=== PATIENT | female | born 1990 | race Caucasian/White ===

== ENCOUNTER 2017-03-17 16:00 | Emergency (ER) | payer BC ==
[~2017-03-17] VITALS: Ht 162.6 cm; Wt 87.5 kg
[~2017-03-17 16:00] MED LIST: BCPILLS PO; PANT40TA PO
[2017-03-17 16:11] VITALS: TEMP 36.9; Ht 162.6 cm; Wt 87.5 kg
--- NOTE | 2017-03-17 16:57 | DIAGNOSTIC IMAGING REPORT ---
L FOOT MIN 3 VIEWS ROUTINE CLINICAL HISTORY: Left foot pain btn 4th and 5th distal metatarsals. COMPARISON: None FINDINGS: Alignment of the left foot is anatomic. No acute fracture is identified. Tarsometatarsal joints are intact. No erosions are identified. There is no evidence for stress fracture by radiography. IMPRESSION: Unremarkable left foot radiographs. Electronically signed by: Dmitry Olmos M.D. 03/17/2017 4:56 PM Dictated Date/Time: 03/17/2017 4:55 PM
--- NOTE | 2017-03-17 17:57 | EMERGENCY ROOM VISIT NOTE ---
History First contact with patient: 16:14 Chief Complaint: FOOT PAIN Stated Complaint: LEFT FOOT PAIN RADIATING INTO BACK History of Present Illness The patient is a 26 year old female who presents to the Emergency Room with complaints of left foot pain. The patient reports that she has had left foot pain for the past 5 days. The patient reports that the pain started in her foot , but has now radiated up and she has pain in the back of her leg and her back. She does have a history of back problems and states that she had an L2 pressure fracture 6 years ago. She has had sciatic nerve pain in the past but states this feels different. She reports that the first and second toes of her left foot are numb. She denies any injury to the foot. She reports her symptoms have been worse this morning. She does have an appointment scheduled with orthopedics 2 weeks from now. Icing the foot without relief. Review of Systems A 6 point review of systems was reviewed with the patient with pertinent positives and negatives as per history of present illness. All else were negative. Social History Smoking Status: Current Every Day Smoker Current/Historical Medications Scheduled Control Pills ( Control Pills), 1 TAB PO DAILY Pantoprazole (Protonix), 40 MG PO QAM Physical Exam Vital Signs Date Time Temp Pulse Resp B/P (MAP) Pulse Ox O2 Delivery O2 Flow Rate FiO2 03/17/17 18:08 85 18 136/77 96 03/17/17 16:11 36.9 89 16 137/90 97 Room Air Physical Exam VITALS: Vitals are noted on the nurse's note and reviewed by myself. Vital signs stable. GENERAL: This is a 26-year-old female, in no acute distress, nondiaphoretic, well-developed well-nourished. SKIN: No erythema, edema or warmth. MUSCULOSKELETAL: There is focal tenderness to the dorsal aspect of the left foot , between the first and second metatarsals. Patient reports decreased sensation over her first and second toes. Full range of motion of the foot. Patient reports pain with plantar flexion. Dorsiflexion is full and normal. Capillary refill within 2 seconds. NEURO: Patient was alert and oriented to person place and time. Medical Decision & Procedures Medical Decision Differential diagnosis includes foot fracture, arthritis, neuroma, among others. The patient was evaluated as above. She initially believed that her pain was radiating from the back into the foot, however on examination she has focal tenderness in the foot and I feel that this pain likely is due to an issue in the foot. This may represent a neuroma or other process. X-ray was negative. Patient does admit that the pain is worsened when she is wearing her sneakers. I recommend that she buy better fitting shoes, which may help with her pain. Conservative measures were discussed, however she will likely need to see orthopedics. She does have an appointment set up. She verbalized understanding of my assessment and treatment plan and was discharged home in good condition. Medication Reconcilliation Current Medication List: was personally reviewed by me Blood Pressure Screening Patient's blood pressure: Normal blood pressure Impression Primary Impression: Left foot pain Departure Information Dispostion Home / Self-Care Condition GOOD Referrals Nerissa Vidal, C.R.N.P. (PCP) Patient Instructions My [facility] Additional Instructions Follow-up with orthopedics as scheduled. You may want to wear a more loose fitting shoe, as this can help relieve symptoms. Naproxen/aleve twice daily. Elevate the foot and ice as needed for pain and swelling. Return to the emergency department with any worsening or new/concerning symptoms.
[2017-03-17 18:08] VITALS: BP 136/77; PULSE 85; O2SAT 96
== END 2017-03-17 18:08 | disposition home or self-care (01) ==
LOC: C.EDB 16:01 → C.EDD 18:08
DX: M79.672 Pain in left foot (principal); F17.210 Nicotine dependence, cigarettes, uncomplicated; Z79.3 Long term (current) use of hormonal contraceptives; Z79.899 Other long term (current) drug therapy

== ENCOUNTER → 2017-10-07 | Outpatient (CLI) | payer OTHER ==
[2017-10-07 18:44] LABS: BASO % 0.3 %; BASO ABS # 0.02 K/uL (0-0.2); EOS % 0.9 %; EOS ABS # 0.06 K/uL (0-0.5); HEMATOCRIT 41.9 % (37-47); HEMOGLOBIN 14.7 g/dL (12.0-16.0); IG# 0.01 K/uL (0.00-0.02); LYMPH % 37.6 %; LYMPH ABS # 2.64 K/uL (1.2-3.4); MEAN CELL VOLUME 88.4 fL (80-100); MEAN CORPUSCULAR HGB CONC 35.1 g/dl (32-36); MEAN PLATELET VOLUME 10.7 fL (7.4-10.4); MONO ABS # 0.49 K/uL (0.11-0.59); NEUT % 54.1 %; NEUT ABS # 3.81 K/uL (1.4-6.5); PLATELET COUNT 226 K/uL (130-400); RED CELL DISTRIBUTION WIDTH CV 12.6 % (11.5-14.5); RED CELL DISTRIBUTION WIDTH SD 40.4 fL (36.4-46.3); WHITE BLOOD COUNT 7.03 K/uL (4.8-10.8)
[2017-10-07 19:21] LABS: ALBUMIN 4.5 gm/dl (3.4-5.0); ALKALINE PHOSPHATASE 70 U/L (45-117); ALT/SGPT 23 U/L (12-78); AST/SGOT 16 U/L (15-37); BLOOD UREA NITROGEN 7 mg/dl (7-18); CALCIUM 9.1 mg/dl (8.5-10.1); CARBON DIOXIDE 26 mmol/L (21-32); GLUCOSE 81 mg/dl (70-99); POTASSIUM 3.5 mmol/L (3.5-5.1); SODIUM 136 mmol/L (136-145); TOTAL PROTEIN 8.4 gm/dl (6.4-8.2)
[2017-10-08 06:26] LABS: HEMOGLOBIN A1C 5.4 % (4.5-5.6)
== END | disposition home or self-care (01) ==
LOC: C.LAB 17:40
PROVIDERS: ATTEND Nurse Practitioner Family
DX: M79.2 Neuralgia and neuritis, unspecified (principal)

== ENCOUNTER → 2017-10-28 | Outpatient (CLI) | payer OTHER | END | disposition home or self-care (01) | LOC: C.LAB 08:27 | PROVIDERS: ATTEND Nurse Practitioner Family | DX: Z13.220 Encounter for screening for lipoid disorders (principal); Z13.1 Encounter for screening for diabetes mellitus ==

== ENCOUNTER 2021-12-05 09:19 | Inpatient (IN) ==
[2021-12-05] MEDS ORDERED: OXYTOCIN 30 UNITS/500 ML BAG IV PRN ×3 (09:39→23:32)
[2021-12-05] MEDS ORDERED: LIDOCAINE 1% LOCAL 20 ML VIAL INFIL PRN (09:39)
[2021-12-05 10:06] LABS: Hematocrit (blood only) 27.4 % (34.1-44.9); Hemoglobin 9.7 g/dl (12.0-16.0); Mean Corpuscular Hemoglobin 33.4 pg (25.0-34.0); Mean Corpuscular Hgb Conc 35.4 g/dL (32.0-36.0); Mean Corpuscular Volume 94.5 fL (80.0-100.0); Mean Platelet Volume 10.7 fL (9.4-12.3); Platelet Count 166 K/uL (130-400); RDW Coefficient of Variation 13.1 % (11.5-14.5); White Blood Count 7.46 K/ul (4.8-10.8)
[2021-12-05] MEDS: LACTATED RINGER'S 1,000 ML IV PRN ×2 (10:27→21:19)
[2021-12-05 11:04] LABS: Albumin Globulin Ratio 1.3 (0.9-2); Albumin Level 3.5 gm/dl (3.4-5.0); BUN Creatinine Ratio 8.5 (10-20); Bilirubin,Total 0.4 mg/dl (0.2-1.0); Creatinine Clr Calc Pharmacy 148.9 ml/min; Est GFR (African American) 142.5 ml/min; Globulin 2.6 gm/dl (2.5-4.0); Potassium 3.5 mmol/L (3.5-5.1); Total Protein 6.1 gm/dl (6.0-8.3)
--- NOTE | 2021-12-05 12:31 | Anesthesiology Consultation ---
Date of Service December 05, 2021 Assessment & Plan Chart Review Chart Review: Acceptable Risk for Surgery, Patient NOT seen in Pre Admission Testing and Acceptable Risk for Labor Epidural Consults Requested none ASA ASA3 Proposed Anesthesia Anesthesia Type: Labor Epidural and CSE History Height/Weight Height: 5 ft 4 in Weight: 87.09 kg Allergies Allergy/AdvReac Type Severity Reaction Status Date / Time No Known Drug Allergies Allergy Unknown Unknown Verified 12/05/21 11:24 Medications Home Medications Medication Instructions Recorded Confirmed Last Taken pantoprazole 20 mg tablet,delayed 20 mg PO DAILY 04/28/21 12/05/21 12/04/21 08:00 release prenat.vits,anni,[id number] 1 tab PO DAILY 05/06/21 12/05/21 12/04/21 08:00 acetone (urine) test (Ketone Urine #50 ea 10/28/21 12/05/21 Unknown Test strips) blood sugar diagnostic (OneTouch #150 ea 10/28/21 12/05/21 Unknown Verio test strips) lancets 33 gauge (OneTouch Delica #150 ea 10/28/21 12/05/21 Unknown Plus Lancet) Active Medications Generic Name Dose Route Start Last Admin Trade Name Freq PRN Reason Stop Dose Admin Lactated Ringer's 1,000 mls @ 125 mls/hr 12/05/21 09:39 12/05/21 10:27 Lr IV 12/07/21 09:38 125 mls/hr .Q8H PRN Administration L&D Protocol Protocol Past Medical History Medical History Cellulitis History of chicken pox Exercise / Class Metabolic Activity II 4-5 Yardwork/Stairs/Walk up hill Past Family History Family History Father Hypertension Grandfather (Paternal) Stroke Prostate cancer Grandmother (Maternal) Stroke Heart disease Bleeding disorder unknown type Grandmother (Paternal) Heart disease Other No family history of adverse response to anesthesia Denies family history of Ovarian cancer Breast cancer Colorectal cancer Past Surgical History Surgical History History of surgery on arm left History of wisdom tooth extraction Past Anesthesia History No Hx of Anesthesia Complications and No Family Hx of Anesthesia Complications History of PONV No Hx of PONV and No Hx of Motion Sickness Social History Smoking Status: Light tobacco smoker tobacco type: cigarettes Smoking cigarettes per day: 5(weaned down from 03/08 ppd Do You Dip or Chew Tobacco: No Hx Alcohol Use: No Hx Substance Use: No Physical Exam Vital Signs Last Vital Signs Temp 37.2 C 12/05/21 11:30 Pulse 84 12/05/21 12:22 Resp 18 12/05/21 09:43 BP 134/76 12/05/21 12:22 Testing Laboratory Results 12/05/21 09:50 12/05/21 10:28
[2021-12-05] MEDS ORDERED: fentaNYL citrate 100 MCG/2 ML VIAL ONE (15:41)
[2021-12-05] MEDS ORDERED: ePHEDrine sulfate 50 MG/ML AMP ONE (15:41)
[2021-12-05] MEDS ORDERED: LIDOCAINE 2%/EPINEPHRINE 1:200,000 20 ML SDV ONE (15:41)
[2021-12-05] MEDS ORDERED: BUPIVACAINE 0.25% 30 ML VIAL ONE (15:41)
[2021-12-05] MEDS ORDERED: SODIUM CHLORIDE 0.9% INJ 10 ML VIAL ONE (15:41)
[2021-12-05] MEDS ORDERED: fentaNYL 2MCG/ML ROPIVACAINE 1.25MG/ML 100 ML BAG EPI ONE (15:42)
[2021-12-05] MEDS ORDERED: fentaNYL 2MCG/ML ROPIVACAINE 1.25MG/ML 100 ML BAG EPI PRN (16:25)
[2021-12-05] MEDS ORDERED: NALBUPHINE HCL INJ 10 MG/ML AMP IV PRN (16:25)
[2021-12-05] MEDS ORDERED: NALOXONE HCL 0.4 MG/1 ML VIAL/CARP IV PRN (16:25)
[2021-12-05] MEDS ORDERED: PROMETHAZINE HCL 25 MG in SODIUM CHLORIDE 0.9% 50 ML IV PRN (16:25)
[2021-12-05] MEDS ORDERED: NALOXONE HCL 1 MG in SODIUM CHLORIDE 0.9% 1000ML 1,000 ML IV PRN (16:25)
[2021-12-05] MEDS ORDERED: ONDANSETRON INJ 2 MG/ML 2 ML VIAL IV PRN (16:25)
[2021-12-05] MEDS ORDERED: diphenhydrAMINE 50 MG/ML VIAL IV PRN (16:25)
[2021-12-05] MEDS ORDERED: ePHEDrine sulfate 50 MG/ML AMP IV PRN (16:25)
--- NOTE | 2021-12-05 19:47 | History & Physical Report ---
Date of Service December 05, 2021 Assessment & Plan (1) Supervision of normal first : Plan: Zehra is a 31-year-old at 37 weeks 0 days gestational age presents with pre mature rupture of membranes. 1. Fetus: Cat 1 2. Labor: Pitocin started. SROM 3. GBS negative (2) Diet controlled gestational diabetes mellitus: (3) PROM (premature rupture of membranes): Admission and Anticipated Discharge Date Admission Date: December 05, 2021 History of Present Illness Primary Care Provider: CAROLINA Dowling Jacquie is a 31-year-old currently at 37 weeks 0 days gestational age presents with spontaneous rupture of membranes. Patient denying any notable contractions. Patient also denies any vaginal bleeding reporting good movement. Patient's complicated by anemia requiring iron transfusion and diet-controlled gestational diabetes. Allergies Allergy/AdvReac Type Severity Reaction Status Date / Time No Known Drug Allergies Allergy Unknown Unknown Verified 12/05/21 11:24 Home Medications Medication Instructions Recorded Confirmed Type pantoprazole 20 mg tablet,delayed 20 mg PO DAILY 04/28/21 12/05/21 History release prenat.vits,anni,[id number]-jngj-hwiij 1 tab PO DAILY 05/06/21 12/05/21 History acetone (urine) test (Ketone Urine #50 ea 10/28/21 12/05/21 Rx Test strips) blood sugar diagnostic (OneTouch #150 ea 10/28/21 12/05/21 Rx Verio test strips) lancets 33 gauge (OneTouch Delica #150 ea 10/28/21 12/05/21 Rx Plus Lancet) Patient History Medical History Cellulitis History of chicken pox Surgical History History of surgery on arm left History of wisdom tooth extraction Family History Father Hypertension Grandfather (Paternal) Stroke Prostate cancer Grandmother (Maternal) Stroke Heart disease Bleeding disorder unknown type Grandmother (Paternal) Heart disease Other No family history of adverse response to anesthesia Denies family history of Ovarian cancer Breast cancer Colorectal cancer Social History Smoking Status: Light tobacco smoker Age Started Using Tobacco: 21; Cigarettes Per Day: 5(weaned down from 1/2 ppd; Second Hand Exposure: Yes; Do You Dip or Chew Tobacco: No; Tobacco Cessation Education Requested by Patient: No Hx Alcohol Use: No Hx Substance Use: No Preferred Language: Vietnamese Communication Ability: Effective Media Law Faculty Member Required: No Beliefs That Will Affect Care: None marital status: marital status details: Jose Grant (31) [phone] Current Living Situation: Significant Other Current Living Situation Comment: Jose- current occupational status: employed 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 Other Information That Helps Us Care for You: No Feels Safe at Home: Yes Safety Concerns: Feels Safe At This Time Assistive Devices: None Physical Exam Genitourinary: Manual OB Exam: + cervical dilation 3 cm, + cervical effacement 50%, + station -2 and + amniotic fluid ( Grossly ruptured) clear OB Exam Monitor Tracing: + external FHT monitor used, + external uterine monitor used, + category I and + normal FHT variability; no early decelerations present, no late decelerations present and no variable decelerations exam per RN Results & Data ([facility]) Vital Signs (Past 12 Hours) Vital Signs Temp Pulse Resp BP 12/05/21 13:52 82 136/74 12/05/21 13:37 88 137/73 12/05/21 13:30 18 12/05/21 13:30 36.9 C 18 12/05/21 13:22 82 142/79 H 12/05/21 13:07 75 132/75 12/05/21 12:37 84 144/75 H 12/05/21 12:22 84 134/76 12/05/21 12:07 90 132/73 12/05/21 11:52 90 125/68 12/05/21 11:37 85 141/73 H 12/05/21 11:30 37.2 C 12/05/21 11:22 89 127/76 12/05/21 11:07 89 138/90 12/05/21 10:52 87 135/90 12/05/21 10:09 96 H 165/100 H 12/05/21 09:27 100 H 140/97 12/05/21 09:43 36.8 C 18 Code Status & VTE Plan VTE Prophylaxis Plan VTE Prophylaxis will be ordered: No Coding Level of Care Code None Diagnoses Supervision of normal first Z34.00 Diet controlled gestational diabetes mellitus O24.410 PROM (premature rupture of membranes) O42.90
--- NOTE | 2021-12-05 19:48 | Labor Progress Brief Note ---
Date of Service December 05, 2021 Subjective Reason For Note: Routine Evaluation Assessment & Plan (1) Supervision of normal first : Plan: Zehra is a 31-year-old at 37 weeks 0 days gestational age presents with pre mature rupture of membranes. 1. Fetus: Cat 1 2. Labor: Progressing, continue started. SROM 3. GBS negative (2) Diet controlled gestational diabetes mellitus: (3) PROM (premature rupture of membranes): Admission and Anticipated Discharge Date Admission Date: December 05, 2021 Physical Exam Genitourinary: Manual OB Exam: + cervical dilation 6 cm, + cervical effacement 70%, + station 0 and + amniotic fluid clear OB Exam Monitor Tracing: + external FHT monitor used, + external uterine monitor used, + category I and + normal FHT variability; no early decelerations present, no late decelerations present and no variable decelerations Results & Data ([facility]) Vital Signs (Past 12 Hours) Vital Signs Temp Pulse Resp BP Pulse Ox 12/05/21 19:43 86 94 12/05/21 19:39 88 123/62 12/05/21 19:38 92 H 95 12/05/21 19:33 103 H 94 12/05/21 19:28 89 94 12/05/21 19:23 94 12/05/21 19:23 105 H 12/05/21 19:23 97 H 111/75 12/05/21 19:18 89 96 12/05/21 19:13 95 H 96 12/05/21 19:09 83 130/71 12/05/21 19:08 91 H 96 12/05/21 19:00 18 12/05/21 19:00 36.9 C 18 12/05/21 19:03 86 95 12/05/21 19:00 18 12/05/21 19:00 18 12/05/21 18:58 98 H 98 12/05/21 18:54 90 149/67 H 12/05/21 18:53 84 96 12/05/21 18:48 95 H 97 12/05/21 18:43 86 97 12/05/21 18:30 18 12/05/21 18:30 18 12/05/21 18:38 97 H 96 12/05/21 18:39 103 H 138/79 12/05/21 18:33 96 H 97 12/05/21 18:28 107 H 96 12/05/21 18:00 18 12/05/21 18:00 18 12/05/21 18:25 87 131/65 12/05/21 18:23 94 H 96 12/05/21 18:18 93 H 97 12/05/21 18:13 103 H 96 12/05/21 18:09 90 125/71 12/05/21 18:08 81 94 12/05/21 18:03 93 H 96 12/05/21 17:58 77 95 12/05/21 17:54 81 123/58 L 12/05/21 17:53 80 95 12/05/21 17:48 78 95 12/05/21 17:43 80 97 12/05/21 17:38 82 96 12/05/21 17:33 76 96 12/05/21 17:30 18 12/05/21 17:30 36.9 C 18 12/05/21 17:28 77 97 12/05/21 17:23 89 120/64 97 12/05/21 17:22 82 123/55 L 12/05/21 17:18 111 H 96 12/05/21 17:16 88 98/50 L 12/05/21 17:13 90 96 12/05/21 17:10 106 H 105/55 L 12/05/21 17:08 108 H 94 12/05/21 17:00 18 12/05/21 17:00 18 12/05/21 17:05 94 H 114/62 12/05/21 16:24 18 12/05/21 16:24 18 12/05/21 16:28 18 12/05/21 16:28 18 12/05/21 17:03 105 H 93 12/05/21 17:04 102 H 105/64 12/05/21 17:01 97 H 106/52 L 12/05/21 16:58 87 96 12/05/21 16:56 98 H 185/79 H 12/05/21 16:53 104 H 96 12/05/21 16:51 90 130/61 12/05/21 16:49 44 L 121/77 12/05/21 16:48 88 20 98 12/05/21 16:47 93 H 116/65 12/05/21 16:45 98 H 116/70 93 12/05/21 16:43 85 18 108/58 L 96 12/05/21 16:42 85 108/59 L 12/05/21 16:39 78 106/58 L 12/05/21 16:38 81 93 12/05/21 16:37 66 18 101/53 L 94 12/05/21 16:35 107 H 112/56 L 12/05/21 16:33 96 12/05/21 16:33 87 12/05/21 16:33 83 117/56 L 12/05/21 16:31 90 118/62 12/05/21 16:29 94 H 122/62 12/05/21 16:28 96 12/05/21 16:28 84 12/05/21 16:28 96 H 114/58 L 12/05/21 16:26 111 H 93 12/05/21 16:25 102 H 147/71 H 12/05/21 16:23 101 H 97 12/05/21 16:21 96 H 18 130/60 12/05/21 16:19 90 140/63 94 12/05/21 16:18 82 97 12/05/21 16:17 98 H 139/69 12/05/21 16:16 90 148/72 H 12/05/21 16:13 98 H 159/103 H 12/05/21 16:11 97 H 157/96 H 12/05/21 16:08 108 H 155/105 H 12/05/21 15:53 86 144/84 H 12/05/21 15:30 37.1 C 12/05/21 15:38 86 138/74 12/05/21 15:23 95 H 134/83 12/05/21 15:07 76 138/64 12/05/21 14:52 77 138/67 12/05/21 14:37 75 146/72 H 12/05/21 14:24 86 134/82 12/05/21 14:08 83 144/69 H 12/05/21 14:07 87 146/94 H 12/05/21 13:52 82 136/74 12/05/21 13:37 88 137/73 12/05/21 13:30 18 12/05/21 13:30 36.9 C 18 12/05/21 13:22 82 142/79 H 12/05/21 13:07 75 132/75 12/05/21 12:37 84 144/75 H 12/05/21 12:22 84 134/76 12/05/21 12:07 90 132/73 12/05/21 11:52 90 125/68 12/05/21 11:37 85 141/73 H 12/05/21 11:30 37.2 C 12/05/21 11:22 89 127/76 12/05/21 11:07 89 138/90 12/05/21 10:52 87 135/90 12/05/21 10:09 96 H 165/100 H 12/05/21 09:27 100 H 140/97 12/05/21 09:43 36.8 C 18 Coding Level of Care Code None Diagnoses Supervision of normal first Z34.00 Diet controlled gestational diabetes mellitus O24.410 PROM (premature rupture of membranes) O42.90
[2021-12-05] MEDS ORDERED: IBUPROFEN 600 MG TAB PO PRN (23:32)
[2021-12-05] MEDS ORDERED: BENZOCAINE 20% AER SPR 82.5 GM CAN EXT PRN (23:32)
[2021-12-05] MEDS ORDERED: DIPHTHERIA/TETANUS/PERTUSSIS 0.5 ML SYR/VIAL IM ONE (23:32)
[2021-12-05] MEDS ORDERED: bisacodyL 10 MG SUPP PR PRN (23:32)
[2021-12-05] MEDS ORDERED: HYDROCORTISONE ACETATE 25 MG SUPP PR PRN (23:32)
[2021-12-05] MEDS ORDERED: ACETAMINOPHEN 325 MG TAB PO PRN (23:32)
--- NOTE | 2021-12-06 01:29 | Anesthesia Procedure Note ---
Date of Service December 06, 2021 Anesthesia Post Epidural Note Vital Signs Vital Signs: Temp Pulse Resp BP Pulse Ox 36.9 C 90 18 147/71 H 93 12/05/21 23:03 12/06/21 01:16 12/06/21 01:01 12/06/21 01:16 12/05/21 23:28 Notes Mental Status: alert / awake / arousable and participated in evaluation Nausea / Vomiting: adequately controlled Pain: adequately controlled Airway Patency, RR, SpO2: stable & adequate BP & HR: stable & adequate Hydration State: stable & adequate Neuraxial Anesthesia: was administered and sensory block is resolving Anesthetic Complications: no major complications apparent and Pt Satisfied with anesthetic care Epidural: Removed without complications and With tip intact
[2021-12-06 06:41] LABS: Hematocrit (blood only) 23.4 % (34.1-44.9); Hemoglobin 8.3 g/dl (12.0-16.0); Mean Corpuscular Hemoglobin 33.9 pg (25.0-34.0); Mean Corpuscular Hgb Conc 35.5 g/dL (32.0-36.0); Mean Corpuscular Volume 95.5 fL (80.0-100.0); Mean Platelet Volume 10.7 fL (9.4-12.3); Platelet Count 160 K/uL (130-400); RDW Coefficient of Variation 12.7 % (11.5-14.5); RDW Standard Deviation 43.8 fL (36.4-46.3); Red Blood Count 2.45 M/uL (3.93-5.22); White Blood Count 11.87 K/ul (4.8-10.8)
--- NOTE | 2021-12-06 08:06 | Obstetrical Progress Note ---
Date of Service December 06, 2021 Assessment & Plan (1) Encounter for care and examination after delivery: Plan With 31-year-old day 1 status post normal spontaneous vaginal delivery. Doing well. Routine care. Anemia noted with appropriate decline from admission. Denies anemia symptoms. Subjective Ambulation: ambulating normally Voiding: no voiding problems Passing Gas:: Yes Diet Tolerance:: regular diet Lochia:: Moderate Feeding Type:: breast feeding Physical Exam Constitutional WD/WN, vitals as above Respiratory normal respiratory effort; no respiratory distress and no labored breathing Gastrointestinal (Abdomen) Inspection/Auscultation: abdomen normal to inspection; abdomen not distended Percussion/Palpation: abdomen soft; abdomen nontender, no guarding and abdomen not rigid Genitourinary OB Exam Abdomen: + fundal height Fundus: + firm and + relation to umbilicus (Below); not tender or not boggy Results & Data ([facility]) Vital Signs (Past 12 Hours) Vital Signs Temp Pulse Pulse Resp BP BP Pulse Ox 12/06/21 03:45 37 C 90 18 138/78 12/06/21 02:00 37.1 C 101 H 18 142/90 H 12/06/21 01:31 36.9 C 18 12/06/21 01:01 18 12/06/21 00:31 18 12/06/21 00:17 18 12/06/21 00:02 18 12/05/21 23:47 18 12/05/21 23:31 18 12/06/21 01:31 92 H 145/73 H 12/06/21 01:16 90 147/71 H 12/06/21 01:01 90 146/75 H 12/06/21 00:47 99 H 143/75 H 12/06/21 00:31 98 H 126/61 12/06/21 00:17 96 H 128/59 L 12/06/21 00:02 96 H 144/83 H 12/05/21 23:47 99 H 114/73 12/05/21 23:31 112 H 149/67 H 12/05/21 23:28 120 H 93 12/05/21 23:23 129 H 82 L 12/05/21 23:22 122 H 89 L 12/05/21 23:18 119 H 92 12/05/21 23:13 132 H 92 12/05/21 23:08 132 H 93 10/01/22 23:09 134 H 130/80 12/05/21 23:03 20 12/05/21 23:03 36.9 C 110 H 20 93 12/05/21 22:58 157 H 93 12/05/21 22:56 150 H 85 L 12/05/21 22:53 112 H 95 12/05/21 22:48 116 H 95 12/05/21 22:43 91 H 94 12/05/21 22:40 100 H 20 119/56 L 12/05/21 22:38 101 H 97 12/05/21 22:33 97 H 97 12/05/21 22:28 109 H 97 12/05/21 22:23 86 127/62 95 12/05/21 22:18 92 H 95 12/05/21 22:13 83 94 12/05/21 22:08 75 94 12/05/21 22:09 75 122/60 12/05/21 22:03 82 94 12/05/21 21:58 83 92 12/05/21 21:53 83 114/62 93 12/05/21 21:48 82 93 12/05/21 21:43 81 93 12/05/21 21:39 78 109/58 L 12/05/21 21:38 78 95 12/05/21 21:33 85 97 12/05/21 21:28 86 95 12/05/21 21:23 85 97 12/05/21 21:18 105 H 97 12/05/21 21:13 90 97 12/05/21 21:10 102 H 122/59 L 12/05/21 21:08 98 H 95 12/05/21 21:03 86 94 12/05/21 20:58 83 94 12/05/21 20:53 36.8 C 81 18 111/59 L 95 12/05/21 20:48 93 H 96 12/05/21 20:43 91 H 97 12/05/21 20:38 90 126/69 95 12/05/21 20:33 105 H 97 12/05/21 20:28 100 H 95 12/05/21 20:23 85 94 12/05/21 20:24 95 H 130/68 12/05/21 20:18 91 H 96 12/05/21 20:13 81 95 12/05/21 20:08 102 H 126/64 94
[2021-12-06] MEDS: PRENATAL VITAMIN 1 TAB PO SCH (08:19)
[2021-12-06] MEDS: DOCUSATE SODIUM 100 MG CAP PO SCH ×2 (08:19→20:37)
[2021-12-06] MEDS ORDERED: bisacodyL 5 MG TABEC PO SCH (20:00)
--- NOTE | 2021-12-07 02:58 | Delivery Summary ---
DATE OF SERVICE: 12/05/2021 PROCEDURE: Normal spontaneous vaginal delivery with left periurethral laceration repair. SURGEON: Salvador Kidd MD. PREOPERATIVE DIAGNOSES: 1. Single intrauterine at 37 weeks and 0 days' gestational age. 2. Premature rupture of membranes. 3. Diet-controlled gestational diabetes. 4. Anemia of . POSTOPERATIVE DIAGNOSES: Status post procedure. ESTIMATED BLOOD LOSS: 200 mL. DRAINS: Straight cath at the completion of the case. URINE OUTPUT: Per straight cath. COMPLICATIONS: None. FINDINGS: Viable male infant with weight pending and Apgars of 8 and 9 at one and five minutes respe ctively. DESCRIPTION OF PROCEDURE: The patient progressed to 10 cm dilated, 100% effaced, positive 2 station, pushed over intact perineum with epidural anesthesia and delivered a viable male with weight and Apgars as noted above. Head of the delivered in ROB position, restituted right transvers e. No nuchal cord noted. Body and shoulders quickly followed. was noted to be vigorous upo n delivery and 1 minute delayed cord clamping was initiated. Cord was then double clamped and cut. remained on maternal abdomen. Cord blood was obtained. Attention was then turned to delivery of the placenta, which was delivered intact, 3-vessel cord, gen tle cord traction. On inspection of the perineum, vagina, cervix, there was noted to be a left periu rethral laceration, which was repaired with 3-0 Vicryl in an interrupted stitch. Needle, sponge, and instrument counts were correct at the completion of the case with mother and stable in the i mmediate post-delivery period. Job ID: [id number]
[2021-12-07 06:26] LABS: Hematocrit (blood only) 24.4 % (34.1-44.9); Hemoglobin 8.6 g/dl (12.0-16.0)
--- NOTE | 2021-12-07 07:15 | Obstetrical Progress Note ---
Date of Service <Jennifer Humphries DO Janet - Last Filed: 12/07/21 07:15> December 07, 2021 Assessment & Plan <Jennifer TrevizoDO albert - Last Filed: 12/07/21 07:15> (1) Encounter for care and examination after delivery: Patient is PPD 2 s/p and doing well. - Eating well, voiding well, ambulating well - Vitals reviewed and within normal limits - Pain well controlled - Blood type: A pos, GBS neg, rubella immune - Plan to discharge home today - After discharge, 6 [address] follow up with Dr. Kidd <Salvador Kidd MD - Last Filed: 12/07/21 07:25> (1) Encounter for care and examination after delivery: Subjective <Jennifer Humphries DO Janet - Last Filed: 12/07/21 07:15> Patient is a 31 yo female who is now PPD #2 following spontaneous vaginal delivery at 37 weeks. Reports feeling well this morning. She denies abdominal cramping and 0/10 pain. Voiding without issue. Tolerating regular meals overnight and able to ambulate some. She has passed gas and had loose bowel movements. Persistent lochia with some improvement this morning. Currently breast feeding and she explains that her nipples are very sore. Pt states that she is ready to go home. Review of Systems Denies fever, chills, sweats. Denies SOB, difficulty breathing, chest pain, palpitations, and chest pressure. Denies breast pain. Endorses nipple pain from breast feeding. Denies dysuria. Denies headache or changes in vision. Physical Exam <Jennifer RoLore Gonzales DO - Last Filed: 12/07/21 07:15> General: Alert and oriented. No acute distress. CV: Regular rate and rhythm. No murmurs. Respiratory: CTA bilaterally. No rhonchi, wheezes, or crackles. No increased work of breathing. Abdomen: Positive bowel sounds. Soft, nontender, non distended. Uterus: Fundus firm and palpable 2 cm below the umbilicus. Lower extremities: No LE edema. No deep calf pain. Alexander's negative bilaterally. Results & Data ([facility]) <Jennifer Gonzales DO - Last Filed: 12/07/21 07:15> Vital Signs (Past 12 Hours) Vital Signs Temp Pulse Resp BP BP Pulse Ox O2 Del Method 12/07/21 04:01 136/82 12/06/21 23:15 37.0 C 94 H 18 140/84 99 Room Air 12/06/21 19:45 36.9 C 77 16 133/92 99 Room Air <Salvador Kidd MD - Last Filed: 12/07/21 07:25> Co-Signing Physician Notes Patient see and evaluated with resident and agree with the above findings and plan. Stable for discharge. Resident Activity Tracking <Jennifer Gonzales DO - Last Filed: 12/07/21 07:15> Resident Involvement: Resident Care Provided Care Provided: OB Delivery
[2021-12-07] MEDS: PRENATAL VITAMIN 1 TAB PO SCH (07:56)
[2021-12-07] MEDS: DOCUSATE SODIUM 100 MG CAP PO SCH (07:59)
== END 2021-12-07 12:18 | disposition home or self-care (01) | DRG 807 ==
LOC: OPB 09:19 → 4S1 09:22 → 4E2 12-06 01:57